=== PATIENT | male | born 1950 | race Caucasian/White ===

== ENCOUNTER 2022-07-11 16:00 | Emergency (ER) | payer BC ==
[~2022-07-11] VITALS: Ht 170.2 cm; Wt 86.2 kg
[2022-07-11 16:00] VITALS: BP_SYST 129
--- NOTE | 2022-07-11 16:00 | NUR ---
Patient triaged and placed in waiting room. VSS and patient appears in no acute distress at this time. Accompanied by , awaiting available bed, and MD notified of need for MSE.
--- NOTE | 2022-07-11 17:10 | NUR ---
DR MOJICA OUT TO TRIAGE ROOM TO EVALUATE PT.
[2022-07-11 17:45] LABS: BASOPHILS # (AUTO) 0.1 K/uL (0.0-0.2); BASOPHILS % (AUTO) 1.3 % (0.0-2.0); EOSINOPHILS # (AUTO) 0.2 K/uL (0.0-0.4); EOSINOPHILS % (AUTO) 2.9 % (0.0-4.0); HEMATOCRIT 35.3 % (36-54); HEMOGLOBIN 12.5 g/dL (14.0-18.0); LYMPHOCYTES # (AUTO) 1.5 K/uL (1.0-5.5); LYMPHOCYTES % (AUTO) 18.3 % (20.5-51.5); MEAN CORPUSCULAR HEMOGLOBIN 30 pg (27-31); MEAN CORPUSCULAR HGB CONC 35 % (32-36); MEAN CORPUSCULAR VOLUME 86 fL (79.0-98.0); MONOCYTES # (AUTO) 0.6 K/uL (0.0-1.0); MONOCYTES % (AUTO) 6.8 % (1.7-9.3); NEUTROPHILS # (AUTO) 5.9 K/uL (1.8-7.7); NEUTROPHILS % (AUTO) 70.7 % (40.0-70.0); PLATELET COUNT (AUTO) 230 K/uL (130-430); RED BLOOD CELL COUNT(AUTO) 4.11 MIL/uL (4.2-6.2); RED CELL DISTRIBUTION WIDTH 15.4 % (9.0-15.0); WHITE BLOOD COUNT (AUTO) 8.3 K/uL (4.8-10.8)
--- NOTE | 2022-07-11 17:45 | NUR ---
BROUGHT BACK TO BED #4 AND REPORT GIVEN TO MINNIE
--- NOTE | 2022-07-11 17:50 | NUR ---
RECEIVED PT FROM MELISA MITCHELL. PT HAS C/O ABDOMINAL PAIN 09/25 AT THIS TIME. PT IS AAOX4. DENIES N/V AT THIS TIME. ABDOMEN SOFT, TENDER, NONDISTENDED. SKIN INTACT, PERIPHERAL PULSES NORMAL, NO EDEMA. PT 'S AT BEDSIDE. SIDERAILS UP X2.
--- NOTE | 2022-07-11 18:00 | NUR ---
URINE OBTAINED, DIPSTICK COMPLETED. DR. MOJICA MADE AWARE PT POSTIVE FOR NITRITES. PT TAKEN FOR CT SCAN.
[2022-07-11 18:03] LABS: ANION GAP 7 (5-15); CALCIUM 9.4 mg/dL (8.4-11.0); CHLORIDE 102 mmol/L (98-107); CREATININE 0.98 mg/dL (0.55-1.30); GLUCOSE 161 mg/dL (70-99); POTASSIUM 4.9 mmol/L (3.5-5.1); UREA NITROGEN, BLOOD 18 mg/dL (8-21)
[2022-07-11 18:18] LABS: ALANINE AMINOTRANSFERASE 50 U/L (12-78); ALBUMIN 3.9 g/dL (3.4-4.8); AMYLASE 60 U/L (0-100); ASPARTATE AMINOTRANSFERASE 22 U/L (10-37); LACTATE DEHYDROGENASE 158 U/L (85-227); LIPASE 162 U/L (73-393); TOTAL BILIRUBIN 0.3 mg/dL (0.0-1.0)
[2022-07-11 18:20] LABS: C-REACTIVE PROTEIN QUANT < 0.2 mg/dL (0-0.5)
[2022-07-11 18:28] LABS: ACETONE, SERUM NEGATIVE (NEGATIVE)
[2022-07-11 18:28] LABS: BILIRUBIN,URINE NEGATIVE (NEGATIVE); BLOOD, URINE NEGATIVE (NEGATIVE); CLARITY/URINE CLEAR (CLEAR); COLOR,URINE YELLOW (YELLOW); GLUCOSE,URINE NEGATIVE (NEGATIVE); KETONES,URINE NEGATIVE (NEGATIVE); LEUKOCYTE ESTERASE ,URINE 2+ (NEGATIVE); NITRITE, URINE NEGATIVE (NEGATIVE); PROTEIN URINE NEGATIVE (NEGATIVE); UROBILINOGEN,URINE 0.2 (0.2-1.0)
[2022-07-11 18:35] LABS: BACTERIA,URINE None Seen /HPF (None Seen); RBC,URINE 0-3 /HPF (0-3)
[2022-07-11 18:36] LABS: MUCUS,URINE None Seen /LPF (None Seen)
--- NOTE | 2022-07-11 19:12 | NUR ---
ENDORSED ALL CARE TO MELISA TRISTAN. ALL QUESTIONS AND CONCERNS ADDRESSED.
[2022-07-11] MEDS ORDERED: IBUP-1969 PO (19:36)
[2022-07-11] MEDS ORDERED: HYDR-3917 PO (19:36)
[2022-07-11 20:00] VITALS: BP_SYST 141
--- NOTE | 2022-07-11 20:00 | NUR ---
Patient given written and verbal discharge instructions and verbalizes understanding. ER Dr. Flores discussed with patient the results and treatment provided. Patient in stable condition. ID arm band removed. Rx of ibuprofen and norco given. Patient educated on pain management and to follow up with PMD. Pain Scale 0. Opportunity for questions provided and answered. Medication side effect fact sheet provided.
== END 2022-07-11 20:00 | disposition home or self-care (01) ==
LOC: SED 16:00
DX: R10.12 Left upper quadrant pain (principal); Z79.899 Other long term (current) drug therapy
CPT/HCPCS: 36415; 76376; 80053; 81000; 82009; 82150; 83605; 83615; 83690; 84484; 85025; 86140; 87086; 99284

== ENCOUNTER 2024-02-19 20:24 | Emergency (ER) | payer BC, MEDICAID ==
[~2024-02-19] VITALS: Ht 170.2 cm; Wt 88.5 kg
[~2024-02-19 20:24] MED LIST: HYDR-3917 PO; IBUP-1969 PO
[2024-02-19 20:35] VITALS: BP_SYST 153; PULSE 83; RESP 20; TEMP 98.3; O2SAT 96
[2024-02-19 21:04] LABS: BILIRUBIN,URINE NEGATIVE (NEGATIVE); BLOOD, URINE TRACE (NEGATIVE); CLARITY/URINE HAZY (CLEAR); COLOR,URINE YELLOW (YELLOW); GLUCOSE,URINE NEGATIVE (NEGATIVE); KETONES,URINE NEGATIVE (NEGATIVE); LEUKOCYTE ESTERASE ,URINE 3+ (NEGATIVE); NITRITE, URINE NEGATIVE (NEGATIVE); PH,URINE 7.5 (5.0-8.0); PROTEIN URINE TRACE (NEGATIVE)
[2024-02-19 21:06] LABS: BASOPHILS # (AUTO) 0.1 K/uL (0.0-0.2); EOSINOPHILS # (AUTO) 0.4 K/uL (0.0-0.4); EOSINOPHILS % (AUTO) 6.5 % (0.0-4.0); HEMATOCRIT 34.3 % (36-54); HEMOGLOBIN 11.8 g/dL (14.0-18.0); LYMPHOCYTES # (AUTO) 1.9 K/uL (1.0-5.5); LYMPHOCYTES % (AUTO) 27.5 % (20.5-51.5); MEAN CORPUSCULAR HEMOGLOBIN 29 pg (27-31); MEAN CORPUSCULAR HGB CONC 35 % (32-36); MEAN CORPUSCULAR VOLUME 83 fL (79.0-98.0); MONOCYTES # (AUTO) 0.6 K/uL (0.0-1.0); MONOCYTES % (AUTO) 8.3 % (1.7-9.3); NEUTROPHILS # (AUTO) 3.9 K/uL (1.8-7.7); NEUTROPHILS % (AUTO) 56.7 % (40.0-70.0); PLATELET COUNT (AUTO) 242 K/uL (130-430); RED BLOOD CELL COUNT(AUTO) 4.15 MIL/uL (4.2-6.2); RED CELL DISTRIBUTION WIDTH 14.6 % (9.0-15.0); WHITE BLOOD COUNT (AUTO) 6.8 K/uL (4.8-10.8)
[2024-02-19 21:12] LABS: BACTERIA,URINE MANY /HPF (None Seen); WBC,URINE 50-80 /HPF (0-3)
[2024-02-19 21:21] LABS: ALANINE AMINOTRANSFERASE 76 U/L (12-78); ALBUMIN 3.6 g/dL (3.4-4.8); ANION GAP 8 (5-15); ASPARTATE AMINOTRANSFERASE 54 U/L (10-37); BILIRUBIN,DIRECT 0.1 mg/dL (0.0-0.3); CALCIUM 8.7 mg/dL (8.4-11.0); CARBON DIOXIDE 28 mmol/L (23-29); CHLORIDE 103 mmol/L (98-107); CREATININE 1.13 mg/dL (0.55-1.30); GLUCOSE 193 mg/dL (74-106); POTASSIUM 4.1 mmol/L (3.5-5.1); SODIUM SERUM 139 mmol/L (136-145); TOTAL BILIRUBIN 0.4 mg/dL (0.0-1.0); TOTAL PROTEIN, SERUM 7.2 g/dL (6.4-8.3); UREA NITROGEN, BLOOD 21 mg/dL (8-21)
[2024-02-19] MEDS ORDERED: cefTRIAXone 1 GM VIAL ONE (21:59)
[2024-02-19] MEDS: cefTRIAXone 1 GM in D5W 50 ML IV ONE (22:02)
[2024-02-19] MEDS ORDERED: CIPR500T5 PO (22:54)
[2024-02-19 22:58] VITALS: BP_SYST 129; PULSE 78; RESP 20; TEMP 98.3; O2SAT 92
== END 2024-02-19 22:58 | disposition home or self-care (01) ==
LOC: SED 20:24
DX: R10.11 Right upper quadrant pain (principal); R30.0 Dysuria; E11.9 Type 2 diabetes mellitus without complications; I48.91 Unspecified atrial fibrillation; Z79.899 Other long term (current) drug therapy
CPT/HCPCS: 99285; 74176; 96365; 80076; 80048; 81001; 85025; 87040; 87086; 87186; 36415; J0696; 81000; 81015